=== PATIENT | female | born 1995 | race Caucasian/White ===

== ENCOUNTER 2023-09-02 08:00 | Outpatient (CLI) | payer OTHER ==
[2023-09-02 16:46] LABS: BILIRUBIN,URINE NEGATIVE (NEGATIVE); GLUCOSE, URINE (UA) NEGATIVE (NEGATIVE); KETONES,URINE (UA) NEGATIVE (NEGATIVE); LEUKOCYTE ESTERASE, URINE NEGATIVE (NEGATIVE); NITRITE,URINE NEGATIVE (NEGATIVE); OCCULT BLOOD,URINE NEGATIVE (NEGATIVE); PROTEIN,URINE NEGATIVE (NEGATIVE); UROBILINOGEN,URINE 0.2 (NORMAL) E.U./dL (NORMAL)
[2023-09-02 16:53] LABS: CLARITY,URINE CLOUDY (CLEAR)
[2023-09-02 16:59] LABS: AMORPHOUS SEDIMENT,UR Marked /LPF; BACTERIA,URINE None Seen /HPF (None Seen); RBC,URINE None Seen /HPF (0-5); SQUAMOUS EPITHELIAL CELL,UR RARE Squamous (<= Few); WBC,URINE 0-3 /HPF (0-5)
== END 2023-09-02 23:59 | disposition home or self-care (01) ==
LOC: LAB.WC 08:00
PROVIDERS: ATTEND Nurse Practitioner
DX: Z34.00 Encounter for supervision of normal first pregnancy, unspecified trimester (principal)
CPT/HCPCS: 81001; 87086

== ENCOUNTER 2023-09-08 13:32 | Emergency (ER) | payer OTHER ==
[2023-09-08 15:00] LABS: BILIRUBIN,URINE NEGATIVE (NEGATIVE); GLUCOSE, URINE (UA) NEGATIVE (NEGATIVE); KETONES,URINE (UA) NEGATIVE (NEGATIVE); LEUKOCYTE ESTERASE, URINE NEGATIVE (NEGATIVE); NITRITE,URINE NEGATIVE (NEGATIVE); OCCULT BLOOD,URINE LARGE (NEGATIVE); PROTEIN,URINE NEGATIVE (NEGATIVE); UROBILINOGEN,URINE 0.2 (NORMAL) E.U./dL (NORMAL)
[2023-09-08 15:02] LABS: CLARITY,URINE CLEAR (CLEAR)
[2023-09-08 15:09] LABS: BACTERIA,URINE Rare /HPF (None Seen); RBC,URINE TNTC /HPF (0-5); SQUAMOUS EPITHELIAL CELL,UR RARE Squamous (<= Few); WBC,URINE 0-3 /HPF (0-5)
[2023-09-08 15:43] LABS: HCG UR QUAL POSITIVE
[2023-09-08 16:26] LABS: BASOPHILS % (AUTO) 0.3 %; EOSINOPHILS % (AUTO) 0.1 %; HCT - HEMATOCRIT 39.9 % (37.0-47.0); HGB - HEMOGLOBIN 13.3 g/dL (12.0-16.0); LYMPHOCYTES # (AUTO) 1.4 10^3/uL (1.5-3.5); LYMPHOCYTES % (AUTO) 9.7 %; MEAN CORPUSCULAR HGB CONC 33.3 g/dL (32.0-36.0); MEAN CORPUSCULAR VOLUME 86.9 fL (81.0-99.0); MONOCYTES # (AUTO) 0.5 10^3/uL (0.0-1.0); MONOCYTES % (AUTO) 3.3 %; NEUTROPHILS # (AUTO) 12.5 10^3/uL (1.5-6.6); NEUTROPHILS % (AUTO) 86.3 %; PLT - PLATELET COUNT 317 10^3/uL (130-450); RED BLOOD COUNT 4.59 10^6/uL (4.20-5.40); RED CELL DISTRIBUTION WIDTH 13.1 % (12.0-15.0); WHITE BLOOD COUNT 14.4 x10^3/uL (4.8-10.8)
[2023-09-08 16:59] LABS: ALBUMIN 4.3 g/dL (3.2-5.5); ALBUMIN/GLOBULIN RATIO 1.4 (1.0-2.2); BILIRUBIN,TOTAL 0.2 mg/dL (0.2-1.0); CALCIUM 9.9 mg/dL (8.5-10.3); CREATININE 0.6 mg/dL (0.6-1.3); MAGNESIUM 1.7 mg/dL (1.7-2.3); TOTAL PROTEIN 7.3 g/dL (6.4-8.9)
--- NOTE | 2023-09-08 18:36 | ED Physician Documentation ---
PD HPI FEMALE - Stated complaint Stated Complaint: - Chief complaint Chief Complaint: Abd Pain - Additional information Additional information: 28-year-old female presents emergency department for concerns of vaginal bleeding. Patient is G2, P0 she reports that she is about 7 weeks today she started noticing bright red vaginal bleeding with mild clots around 1 PM since then the abdominal cramping and the bleeding has almost entirely resolved but patient wanted to come into the emergency department for further evaluation for concerns of possible miscarriage. 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 : None HEENT: None Psych: Depression Musculoskeletal: None Derm: None - Past Surgical History Past Surgical History: No - Present Medications Home Medications: Ambulatory Orders Medication Instructions Recorded Confirmed Sertraline [Zoloft] 25 mg PO DAILY 09/08/23 09/08/23 hydrOXYzine HCL [Hydroxyzine HCl] 10 mg PO DAILY 09/08/23 09/08/23 - Allergies Allergies/Adverse Reactions: Allergies Allergy/AdvReac Type Severity Reaction Status Date / Time No Known Drug Allergies Allergy Verified 09/08/23 17:42 - Social History Does the pt smoke?: No Smoking Status: Never smoker Does the pt drink ETOH?: No Does the pt have substance abuse?: No - Immunizations Immunizations are current?: Yes - POLST Patient has POLST: No PD ED PE NORMAL - Vitals Vital signs reviewed: Yes - General General: Alert and oriented X 3, No acute distress, Well developed/nourished - HEENT HEENT: Atraumatic, PERRL - Abdomen Abdomen: Normal bowel sounds, Soft, Other (Mild suprapubic tenderness) - Back Back: No CVA TTP - Derm Derm: Normal color, Warm and dry, No rash - Psych Psych: Normal mood, Normal affect Results - Vitals Vitals: Vital Signs - 24 hr 09/08/23 09/08/23 13:56 18:46 Temperature 36.9 C 36.8 C Heart Rate 82 81 Respiratory 17 18 Rate Blood Pressure 125/62 130/72 O2 Saturation 99 100 Oxygen O2 Source Room air - Labs Labs: Laboratory Tests 09/08/23 09/08/23 09/08/23 14:00 14:00 16:22 WBC RBC Hgb Hct MCV MCH MCHC RDW Plt Count MPV Neut # (Auto) Lymph # (Auto) [place] # (Auto) Eos # (Auto) Baso # (Auto) Absolute Nucleated RBC Nucleated RBC % Sodium Potassium Chloride Carbon Dioxide Anion Gap BUN Creatinine Estimated GFR (MDRD) Glucose Calcium Magnesium Total Bilirubin AST ALT Alkaline Phosphatase Total Protein Albumin Globulin Albumin/Globulin Ratio Lipase Beta HCG, Quant Urine Color YELLOW Urine Clarity CLEAR Urine pH 7.0 Ur Specific [place] 1.025 Urine Protein NEGATIVE Urine Glucose (UA) NEGATIVE Urine Ketones NEGATIVE Urine Occult Blood LARGE H Urine Nitrite NEGATIVE Urine Bilirubin NEGATIVE Urine Urobilinogen 0.2 (NORMAL) Ur Leukocyte Esterase NEGATIVE Urine RBC TNTC H Urine WBC 0-3 Ur Squamous Epith Cells RARE Squamous Urine Bacteria Rare Ur Microscopic Review INDICATED Urine Culture Comments NOT INDICATED Urine HCG, Qual POSITIVE Blood Type O POSITIVE 09/08/23 09/08/23 16:22 16:22 WBC 14.4 H RBC 4.59 Hgb 13.3 Hct 39.9 MCV 86.9 MCH 29.0 MCHC 33.3 RDW 13.1 Plt Count 317 MPV 9.0 Neut # (Auto) 12.5 H Lymph # (Auto) 1.4 L [place] # (Auto) 0.5 Eos # (Auto) 0.0 Baso # (Auto) 0.0 Absolute Nucleated RBC 0.00 Nucleated RBC % 0.0 Sodium 133 L Potassium 4.0 Chloride 104 Carbon Dioxide 21 Anion Gap 8.0 BUN 7 Creatinine 0.6 Estimated GFR (MDRD) 121 Glucose 179 H Calcium 9.9 Magnesium 1.7 Total Bilirubin 0.2 AST 18 ALT 25 Alkaline Phosphatase 38 L Total Protein 7.3 Albumin 4.3 Globulin 3.0 Albumin/Globulin Ratio 1.4 Lipase 18 Beta HCG, Quant 40558.2 Urine Color Urine Clarity Urine pH Ur Specific [place] Urine Protein Urine Glucose (UA) Urine Ketones Urine Occult Blood Urine Nitrite Urine Bilirubin Urine Urobilinogen Ur Leukocyte Esterase Urine RBC Urine WBC Ur Squamous Epith Cells Urine Bacteria Ur Microscopic Review Urine Culture Comments Urine HCG, Qual Blood Type - Rads (name of study) First trimester OB ultrasound Relevant Findings:: Final report received, EMP independent interpretation of test, Other (Single intrauterine gestation with estimated age of 6 weeks. Subchorionic hematoma 1.4 cm, positive heart tones.) PD Medical Decision Making - ED course ED course: 28-year-old female presents emergency department for concerns of vaginal bleeding and cramping. Differentials include but not limited to urinary tract infection, miscarriage, menses. Patient did test positive quantitative hCG was 23,403, mild leukocytosis, WBC 14.4 with slightly elevated neutrophils at 12.5. Glucose elevated at 179 no other significant electrolyte abnormalities. Urinalysis was complete negative for any leukocytes or nitrites making me less suspicious or concerned about possible urinary tract infection. An OB first trimester ultrasound was complete and it did reveal a single intrauterine gestation with estimated age of 6 weeks 5 days as well as a 1.4 cm subchorionic hematoma. Patient was told that given that these ultrasound results are reassuring she is possibly experiencing threatened miscarriage she is told to not insert anything vaginally until she is able to follow-up with AUTO BODY REPAIRER outpatient for further evaluation and to avoid any strenuous exercise. She was given strict ER return precautions she is safe for discharge at this time not concerned about any sort of ectopic or other emergencies. Return precautions given Departure - Departure Disposition: 01 Home, Self Care Clinical Impression: Threatened Instructions: ED Miscarriage Poss Comments: Thank you for trusting us with your care, we have evaluated you for Your vaginal bleeding and abdominal cramping. We have completed an ultrasound and it appears that you are is intra uterus and measuring at about 6 weeks there is a small bleed but we do not believe there is any further emergent workup indicated at this time. Please follow-up with [facility] REPAIR[facility] as needed avoid inserting anything vaginally until you are able to follow-up with [facility] BODY REPAIRER and no strenuous activities like working out or riding bike until you are able to follow-up with [facility] REPAIR[facility]. Please come back to the emergency department for having any severe worsening vaginal bleeding worsening abdominal pain fevers chills or any other emergent concerning symptoms. Forms: PCP List Discharge Date/Time: 09/08/23 18:45
[2023-09-08 18:47] VITALS: BP 130/72; O2SAT 100
--- NOTE | 2023-09-08 20:10 | Ultrasound Report ---
PROCEDURE: OB 1st Trimester w/TV INDICATIONS: 7 weeks , vaginal bleeding OUTSIDE/PRIOR DATING DATA: Last menstrual period (LMP): 07/18/2023. LMP-based estimated date of delivery (KIM): 04/23/2024. First dating scan (date and location): 09/08/2023. Estimated date of delivery (KIM) from first dating scan: 04/28/2024. TECHNIQUE: Real-time scanning was performed of the fetus and maternal pelvic organs, with image documentation. Endovaginal scanning was also performed to better visualize the fetus and maternal ovaries. COMPARISON: None. FINDINGS: Intrauterine gestational sac present. Embryo: Mean gestational sac diameter of 1.76 cm corresponding to estimated age of 6 weeks, 5 days. [place]-rump length measures 0.78 cm corresponding to estimated age of 6 weeks, 5 days. Heart rate: 137 bpm. Other: No perigestational fluid collection. Measurement variability in dating: +/- 4 weeks by LMP, +/- 7 days by mean sac diameter (use before 6 weeks gestation if crown-rump length not able to be measured), +/- 5 days by crown-rump length (6-12 weeks gestation). Maternal organs: Ovaries appear within normal limits. Left corpus luteum cyst visualized. Subchorion ic bleed measuring 0.9 x 0.9 x 1.4 cm. IMPRESSION: Single intrauterine gestation with estimated age of 6 weeks, 5 days based on crown-rump length. Subchorionic hematoma measuring up to 1.4 cm. Reviewed by: Margoth Torrez MD, PhD on 09/08/2023 8:09 PM PDT Approved by: Margoth Torrez MD, PhD on 09/08/2023 8:09 PM PDT Station ID: [id number]
== END 2023-09-08 18:45 | disposition home or self-care (01) ==
LOC: ED 13:32
DX: O20.0 Threatened abortion (principal); Z3A.01 Less than 8 weeks gestation of pregnancy
CPT/HCPCS: 36415; 80053; 81001; 81003; 81025; 83690; 83735; 84702; 85025; 86900; 86901; 87086; 99284

== ENCOUNTER 2023-09-14 06:39 | Emergency (ER) | payer OTHER ==
--- NOTE | 2023-09-14 07:32 | ED Physician Documentation ---
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 Patient is 28-year-old female -0-1-0 in early . The patient was seen in the emergency department 6 days ago with vaginal bleeding and threatened miscarriage. At that time had ultrasound which showed IUP with gestational age of 6 weeks 5 days and a 1.4 cm subchorionic hematoma. Patient was doing better since then. Last night at 0030 she developed some mild pelvic cramping and had some bleeding. Heavier than spotting but about like a menstrual period. Bleeding now better. No further cramping no lightheadedness. She is Rh+. Review of Systems Constitutional: denies: Fever, Chills GI: denies: Abdominal Pain : denies: Dysuria, Frequency PD PAST MEDICAL HISTORY - Past Medical History Past Medical History: No Cardiovascular: None Respiratory: None Neuro: None Endocrine/Autoimmune: None GI: None TRANSITION TEACHER: None : None HEENT: None Psych: Depression Musculoskeletal: None Derm: None - Past Surgical History Past Surgical History: No - Present Medications Home Medications: Ambulatory Orders Medication Instructions Recorded Confirmed Sertraline [Zoloft] 25 mg PO DAILY 09/08/23 09/14/23 hydrOXYzine HCL [Hydroxyzine HCl] 10 mg PO DAILY 09/08/23 09/14/23 Pnv No.95/Ferrous Fum/Folic AC 1 each PO DAILY 09/14/23 09/14/23 [ Tablet] Pyridoxine HCl (Vitamin B6) 10 mg PO PRN PRN 09/14/23 09/14/23 [Vitamin B-6] - Allergies Allergies/Adverse Reactions: Allergies Allergy/AdvReac Type Severity Reaction Status Date / Time No Known Drug Allergies Allergy Verified 09/14/23 06:51 - Social History Does the pt smoke?: No Smoking Status: Never smoker Does the pt drink ETOH?: No Does the pt have substance abuse?: No - Immunizations Immunizations are current?: Yes - POLST Patient has POLST: No PD ED PE NORMAL - General General: Alert and oriented X 3 - HEENT HEENT: Atraumatic - Neck Neck: Supple, no meningeal sign - Cardiac Cardiac: RRR, No murmur - Respiratory Respiratory: No respiratory distress - Abdomen Abdomen: Normal bowel sounds, Soft - Female Female : Mash Grinder present, Other (Scant dark/brownish blood material in vault. No clots no bright red blood. Os is closed. Bimanual exam without any localizing signs.) - Extremities Extremities: No deformity Results - Vitals Vitals: Vital Signs - 24 hr 09/14/23 06:51 Temperature 37.1 C Heart Rate 86 Respiratory 16 Rate Blood Pressure 144/92 H O2 Saturation 100 Oxygen O2 Source Room air - Labs Labs: Laboratory Tests 09/14/23 09/14/23 08:01 08:01 WBC 11.9 H RBC 4.69 Hgb 13.4 Hct 40.3 MCV 85.9 MCH 28.6 MCHC 33.3 RDW 12.9 Plt Count 317 MPV 8.9 Neut # (Auto) 8.9 H Lymph # (Auto) 2.2 [place] # (Auto) 0.6 Eos # (Auto) 0.1 Baso # (Auto) 0.0 Absolute Nucleated RBC 0.00 Nucleated RBC % 0.0 Beta HCG, Quant 59137.7 PD Medical Decision Making - ED course Complexity details: reviewed old records, reviewed results, re-evaluated patient, considered differential (Threatened AB versus inevitable AB. She has known IUP diagnosed on last visit. Given presence of subchorionic hematoma noted on last ultrasound bleeding is not completely unexpected.) ED course: Patient with vaginal bleeding in setting of early and known IUP. She is 7 weeks 4 days by last ultrasound dates. She is Rh+. [place] [address].7. Plan to discharge home, recheck quant beta in 4872 hours with her OB doctor here at [facility]. Hemodynamically stable, well- appearing. Would not repeat ultrasound at this time.Discussed conservative measures including pelvic rest and importance of rechecking beta in 48 to 72 hours to determine trend. Departure - Departure Disposition: Home, Self Care Clinical Impression: Threatened Condition: Good Instructions: ED Miscarriage Poss Follow-Up: Radames Montague MD [Provider Admit Priv/Credential] - Comments: . As I mentioned today, is important to recheck your beta hCG ( hormone test) in 2 to 3 days. Your OB doctor can help with this. Your beta hCG today was 57947. Call the OB clinic to arrange for follow up check and repeat blood test. Return to emergency department worsening bleeding, soaking through more than a pad an hour or any other concerns Forms: PCP List
[2023-09-14 08:06] LABS: BASOPHILS % (AUTO) 0.3 %; EOSINOPHILS # (AUTO) 0.1 10^3/uL (0.0-0.7); EOSINOPHILS % (AUTO) 0.4 %; HCT - HEMATOCRIT 40.3 % (37.0-47.0); HGB - HEMOGLOBIN 13.4 g/dL (12.0-16.0); LYMPHOCYTES # (AUTO) 2.2 10^3/uL (1.5-3.5); LYMPHOCYTES % (AUTO) 18.2 %; MEAN CORPUSCULAR HEMOGLOBIN 28.6 pg (27.0-31.0); MEAN CORPUSCULAR HGB CONC 33.3 g/dL (32.0-36.0); MEAN CORPUSCULAR VOLUME 85.9 fL (81.0-99.0); MEAN PLATELET VOLUME 8.9 fL (7.9-10.8); MONOCYTES # (AUTO) 0.6 10^3/uL (0.0-1.0); MONOCYTES % (AUTO) 5.2 %; NEUTROPHILS # (AUTO) 8.9 10^3/uL (1.5-6.6); NEUTROPHILS % (AUTO) 75.5 %; PLT - PLATELET COUNT 317 10^3/uL (130-450); RED BLOOD COUNT 4.69 10^6/uL (4.20-5.40); RED CELL DISTRIBUTION WIDTH 12.9 % (12.0-15.0); WHITE BLOOD COUNT 11.9 x10^3/uL (4.8-10.8)
[2023-09-14 09:20] VITALS: BP 136/56; O2SAT 97
== END 2023-09-14 09:17 | disposition home or self-care (01) ==
LOC: ED 06:39
DX: O20.0 Threatened abortion (principal); Z3A.01 Less than 8 weeks gestation of pregnancy
CPT/HCPCS: 36415; 84702; 85025; 99283

== ENCOUNTER 2023-09-15 15:05 | Outpatient (CLI) | payer OTHER ==
--- NOTE | 2023-09-15 16:37 | Ultrasound Report ---
PROCEDURE: OB 1st Trimester w/TV INDICATIONS: POSITIVE TEST OUTSIDE/PRIOR DATING DATA: Last menstrual period (LMP): 07/18/2023. LMP-based estimated date of delivery (KIM): 04/23/2024. First dating scan (date and location): 09/08/2023. Estimated date of delivery (KIM) from first dating scan: 04/28/2024. TECHNIQUE: Real-time scanning was performed of the fetus and maternal pelvic organs, with image documentation. Endovaginal scanning was also performed to better visualize the fetus and maternal ovaries. COMPARISON: None. FINDINGS: Intrauterine gestational sac present. Embryo: 1.56 cm, 8 weeks 0 days Heart rate: 166 bpm. Other: Small perigestational fluid collection, measuring 1.4 x 1.0 x 2.0 cm.. Measurement variability in dating: +/- 4 weeks by LMP, +/- 7 days by mean sac diameter (use before 6 weeks gestation if crown-rump length not able to be measured), +/- 5 days by crown-rump length (6-12 weeks gestation). Maternal organs: Ovaries appear within normal limits. Multiple small presumed left corpus luteal cys ts. IMPRESSION: Living early first trimester intrauterine with crown-rump length and heartbeat. Small subch orionic hemorrhage. Reviewed by: Kevin De La Rosa MD on 09/15/2023 4:36 PM PDT Approved by: Kevin De La Rosa MD on 09/15/2023 4:36 PM PDT Station ID: [id number]
== END 2023-09-15 15:06 | disposition home or self-care (01) ==
LOC: DI 15:05
PROVIDERS: ATTEND Nurse Practitioner
DX: O26.851 Spotting complicating pregnancy, first trimester (principal); Z3A.08 8 weeks gestation of pregnancy
CPT/HCPCS: 36415; 84702

== ENCOUNTER 2023-09-18 12:11 | Outpatient (CLI) | payer OTHER | END 2023-09-18 12:12 | disposition home or self-care (01) | LOC: LAB 12:11 | PROVIDERS: ATTEND Nurse Practitioner | DX: O26.851 Spotting complicating pregnancy, first trimester (principal) | CPT/HCPCS: 36415; 84702 ==

== ENCOUNTER 2023-10-15 11:55 | Outpatient (CLI) | payer OTHER ==
[2023-10-15 12:16] LABS: BASOPHILS % (AUTO) 0.2 %; EOSINOPHILS # (AUTO) 0.1 10^3/uL (0.0-0.7); EOSINOPHILS % (AUTO) 0.4 %; HCT - HEMATOCRIT 38.1 % (37.0-47.0); HGB - HEMOGLOBIN 12.9 g/dL (12.0-16.0); LYMPHOCYTES # (AUTO) 1.9 10^3/uL (1.5-3.5); LYMPHOCYTES % (AUTO) 15.1 %; MEAN CORPUSCULAR HEMOGLOBIN 28.7 pg (27.0-31.0); MEAN CORPUSCULAR HGB CONC 33.9 g/dL (32.0-36.0); MEAN CORPUSCULAR VOLUME 84.9 fL (81.0-99.0); MEAN PLATELET VOLUME 8.9 fL (7.9-10.8); MONOCYTES # (AUTO) 0.7 10^3/uL (0.0-1.0); MONOCYTES % (AUTO) 5.8 %; PLT - PLATELET COUNT 333 10^3/uL (130-450); RED BLOOD COUNT 4.49 10^6/uL (4.20-5.40); RED CELL DISTRIBUTION WIDTH 12.5 % (12.0-15.0); WHITE BLOOD COUNT 12.8 x10^3/uL (4.8-10.8)
[2023-10-15 12:33] LABS: ALBUMIN 4.2 g/dL (3.2-5.5); ALBUMIN/GLOBULIN RATIO 1.3 (1.0-2.2); BILIRUBIN,TOTAL 0.3 mg/dL (0.2-1.0); CALCIUM 9.9 mg/dL (8.5-10.3); CREATININE 0.4 mg/dL (0.6-1.3); POTASSIUM 3.6 mmol/L (3.5-4.5); TOTAL PROTEIN 7.4 g/dL (6.4-8.9)
[2023-10-15 12:36] LABS: ESTIMATED AVERAGE GLUCOSE 117 mg/dL (70-100); HEMOGLOBIN A1c% 5.7 % (4.27-6.07)
[2023-10-15 12:46] LABS: THYROID STIMULATING HORMONE 0.42 uIU/mL (0.34-5.60)
[2023-10-16 06:10] LABS: RPR Non Reactive (Non Reactive)
[2023-10-16 07:10] LABS: HBsAG SCREEN Negative (Negative)
[2023-10-16 09:11] LABS: HIV SCREEN 4TH GENERATION Non Reactive (Non Reactive)
[2023-10-16 12:10] LABS: VARICELLA-ZOSTER AB IGG 368 index (Immune >165)
[2023-10-17 01:08] LABS: HCV AB Non Reactive (Non Reactive)
== END 2023-10-15 11:56 | disposition home or self-care (01) ==
LOC: LAB 11:55
PROVIDERS: ATTEND Nurse Practitioner
DX: Z36.89 Encounter for other specified antenatal screening (principal); E28.2 Polycystic ovarian syndrome; O99.280 Endocrine, nutritional and metabolic diseases complicating pregnancy, unspecified trimester
CPT/HCPCS: 36415; 80053; 83036; 84443; 85025; 86592; 86762; 86787; 86803; 86850; 86900; 86901; 87340; 87389

== ENCOUNTER 2023-10-16 08:07 | Emergency (ER) | payer OTHER ==
[2023-10-16 08:35] LABS: BASOPHILS % (AUTO) 0.2 %; EOSINOPHILS % (AUTO) 0.3 %; HCT - HEMATOCRIT 37.6 % (37.0-47.0); HGB - HEMOGLOBIN 12.9 g/dL (12.0-16.0); LYMPHOCYTES # (AUTO) 1.7 10^3/uL (1.5-3.5); LYMPHOCYTES % (AUTO) 13.1 %; MEAN CORPUSCULAR HGB CONC 34.3 g/dL (32.0-36.0); MEAN CORPUSCULAR VOLUME 84.5 fL (81.0-99.0); MEAN PLATELET VOLUME 8.8 fL (7.9-10.8); MONOCYTES # (AUTO) 0.6 10^3/uL (0.0-1.0); MONOCYTES % (AUTO) 4.7 %; NEUTROPHILS # (AUTO) 10.4 10^3/uL (1.5-6.6); NEUTROPHILS % (AUTO) 81.1 %; PLT - PLATELET COUNT 318 10^3/uL (130-450); RED BLOOD COUNT 4.45 10^6/uL (4.20-5.40); RED CELL DISTRIBUTION WIDTH 12.6 % (12.0-15.0); WHITE BLOOD COUNT 12.8 x10^3/uL (4.8-10.8)
[2023-10-16 08:55] LABS: ALBUMIN 4.2 g/dL (3.2-5.5); ALBUMIN/GLOBULIN RATIO 1.3 (1.0-2.2); BILIRUBIN,TOTAL 0.3 mg/dL (0.2-1.0); CALCIUM 9.8 mg/dL (8.5-10.3); CREATININE 0.4 mg/dL (0.6-1.3); POTASSIUM 3.5 mmol/L (3.5-4.5); TOTAL PROTEIN 7.4 g/dL (6.4-8.9)
[2023-10-16] MEDS: SODIUM CHLORIDE 0.9% 1,000 ML IV STA (08:55)
[2023-10-16] MEDS: ONDANSETRON 4 MG/2 ML VIAL IVP STA (08:57)
--- NOTE | 2023-10-16 09:02 | ED Physician Documentation ---
PD HPI NVD - Stated complaint Stated Complaint: N/V - Chief complaint Chief Complaint: Abd Pain - History obtained from History obtained from: Patient - Additonal information Additional information: Patient is a 28-year-old female approximately 12 weeks , G2, P0 (h/o 1 elective ) Presenting with ongoing nausea and vomiting. Patient states that she has been battling morning sickness through this and has tried Zofran and Unisom without any improvement. She does have Phenergan suppositories which help a little bit but primarily they just make her sleepy. She is only tried the suppositories 3 times. This morning she was having several episodes of nausea and vomiting and then ended up having a nosebleed and saw few specks of blood in her emesis and called her PCP at the [facility] who recommended she come to the emergency department. She is following with Annie at the [facility] clinic for her . Denies vaginal bleeding or discharge. Denies dysuria.Does not take any blood thinners. Review of Systems Constitutional: denies: Fever Cardiac: denies: Chest pain / pressure Respiratory: denies: Dyspnea GI: reports: Nausea, Vomiting. 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 : None HEENT: None Psych: Depression Musculoskeletal: None Derm: None - Past Surgical History Past Surgical History: No - Present Medications Home Medications: Ambulatory Orders Medication Instructions Recorded Confirmed Sertraline [Zoloft] 25 mg PO DAILY 09/08/23 10/16/23 hydrOXYzine HCL [Hydroxyzine HCl] 10 mg PO DAILY 09/08/23 10/16/23 Pnv No.95/Ferrous Fum/Folic AC 1 each PO DAILY 09/14/23 10/16/23 [ Tablet] Pyridoxine HCl (Vitamin B6) 10 mg PO PRN PRN 09/14/23 10/16/23 [Vitamin B-6] PROMETHAZINE SUPP Prepack 2 1 supp NM BID PRN 10/16/23 10/16/23 [PHENADOZ SUPP Prepack 2] - Allergies Allergies/Adverse Reactions: Allergies Allergy/AdvReac Type Severity Reaction Status Date / Time No Known Drug Allergies Allergy Verified 10/16/23 08:14 - Social History Does the pt smoke?: No Smoking Status: Never smoker Does the pt drink ETOH?: No Does the pt have substance abuse?: No - Immunizations Immunizations are current?: Yes - POLST Patient has POLST: No PD ED PE NORMAL - General General: Alert and oriented X 3, No acute distress, Well developed/nourished - HEENT HEENT: Atraumatic - Neck Neck: Supple, no meningeal sign - Cardiac Cardiac: RRR, Strong equal pulses - Respiratory Respiratory: No respiratory distress, Clear bilaterally - Abdomen Abdomen: Normal bowel sounds, Soft, Non tender, Non distended - Derm Derm: Warm and dry - Neuro Neuro: Normal speech Results - Vitals Vitals: Vital Signs - 24 hr 10/16/23 10/16/23 08:10 10:23 Temperature 36.5 C Heart Rate 93 88 Respiratory 18 15 Rate Blood Pressure 137/68 H 130/68 O2 Saturation 100 99 Oxygen O2 Source Room air - Labs Labs: Laboratory Tests 10/16/23 10/16/23 10/16/23 08:27 08:27 09:15 WBC 12.8 H RBC 4.45 Hgb 12.9 Hct 37.6 MCV 84.5 MCH 29.0 MCHC 34.3 RDW 12.6 Plt Count 318 MPV 8.8 Neut # (Auto) 10.4 H Lymph # (Auto) 1.7 [place] # (Auto) 0.6 Eos # (Auto) 0.0 Baso # (Auto) 0.0 Absolute Nucleated RBC 0.00 Nucleated RBC % 0.0 Sodium 133 L Potassium 3.5 Chloride 103 Carbon Dioxide 22 Anion Gap 8.0 BUN 4 L Creatinine 0.4 L Estimated GFR (MDRD) 193 Glucose 123 H Calcium 9.8 Total Bilirubin 0.3 AST 17 ALT 19 Alkaline Phosphatase 32 L Total Protein 7.4 Albumin 4.2 Globulin 3.2 Albumin/Globulin Ratio 1.3 Lipase 13 Urine Color DARK YELLOW Urine Clarity CLEAR Urine pH 7.5 Ur Specific [place] 1.025 Urine Protein 30 H Urine Glucose (UA) NEGATIVE Urine Ketones NEGATIVE Urine Occult Blood NEGATIVE Urine Nitrite NEGATIVE Urine Bilirubin NEGATIVE Urine Urobilinogen 0.2 (NORMAL) Ur Leukocyte Esterase NEGATIVE Urine RBC 0-5 Urine WBC 0-3 Ur Squamous Epith Cells MANY Squamous H Urine Bacteria Moderate H Ur Microscopic Review INDICATED Urine Culture Comments NOT INDICATED PD Medical Decision Making - ED course Complexity details: reviewed results, re-evaluated patient, d/w patient ED course: Patient is a 28-year-old female G2, P0 who is approximately 12 weeks presenting for evaluation of ongoing nausea and vomiting in the setting of . Vital signs are stable. No abdominal symptoms And abdominal exam is benign. heart tones were obtained by RN at 160 bpm.CBC and chemistries were reviewed. Urine analysis is not overly suggestive of infection. She is feeling better here with IV fluids and Zofran and feeling hungry and would like to be discharged. She has medications at home and will have continued follow-up with her OB. Patient advised on concerning symptoms to return for. Departure - Departure Disposition: Home, Self Care Clinical Impression: Nausea/vomiting in Condition: Stable Instructions: ED Nausea Vomiting Follow-Up: Annie Wheeler ARNP [Provider Admit Priv/Credential] - Comments: Please continue to have close follow-up with the women's care clinic regarding the nausea you are experiencing through your . Continue to use your medications at home as needed to try to stay hydrated. Return to the ER if you develop any worsening symptoms. Forms: PCP List Discharge Date/Time: 10/16/23 10:24
[2023-10-16 09:22] LABS: BILIRUBIN,URINE NEGATIVE (NEGATIVE); GLUCOSE, URINE (UA) NEGATIVE (NEGATIVE); KETONES,URINE (UA) NEGATIVE (NEGATIVE); LEUKOCYTE ESTERASE, URINE NEGATIVE (NEGATIVE); NITRITE,URINE NEGATIVE (NEGATIVE); OCCULT BLOOD,URINE NEGATIVE (NEGATIVE); PH,URINE 7.5 PH (5.0-7.5); PROTEIN,URINE 30 mg/dL (NEGATIVE); UROBILINOGEN,URINE 0.2 (NORMAL) E.U./dL (NORMAL)
[2023-10-16 09:25] LABS: CLARITY,URINE CLEAR (CLEAR)
[2023-10-16 09:47] LABS: BACTERIA,URINE Moderate /HPF (None Seen); RBC,URINE 0-5 /HPF (0-5); SQUAMOUS EPITHELIAL CELL,UR MANY Squamous (<= Few); WBC,URINE 0-3 /HPF (0-5)
[2023-10-16 10:28] VITALS: BP 130/68; O2SAT 99
== END 2023-10-16 10:24 | disposition home or self-care (01) ==
LOC: ED 08:07
DX: O21.0 Mild hyperemesis gravidarum (principal); Z3A.12 12 weeks gestation of pregnancy
CPT/HCPCS: 36415; 80053; 81001; 81003; 83690; 85025; 87086; 96374; 99284

== ENCOUNTER 2023-11-05 13:03 | Outpatient (CLI) | payer OTHER | END 2023-11-05 13:04 | disposition home or self-care (01) | LOC: LAB 13:03 | PROVIDERS: ATTEND Obstetrics & Gynecology | DX: Z34.00 Encounter for supervision of normal first pregnancy, unspecified trimester (principal) | CPT/HCPCS: 36415; 82105; 82950 ==

== ENCOUNTER 2023-12-15 15:08 | Outpatient (CLI) | payer OTHER ==
--- NOTE | 2023-12-15 17:50 | Ultrasound Report ---
PROCEDURE: OB Anatomy Scan INDICATIONS: SUPERVISION OF OUTSIDE/PRIOR DATING DATA: Last menstrual period (LMP): 07/18/2023. LMP-based estimated date of delivery (KIM): 04/23/2024. First dating scan (date and location): 09/08/2023. Estimated date of delivery (KIM) from first dating scan: 04/28/2024. The below data below was generated using the working KIM of 04/28/2024 TECHNIQUE: Real-time scanning was performed of the fetus, with image documentation and biometric measurements. Endovaginal scanning: Not performed. COMPARISON: 09/15/2023 FINDINGS: General: A single living intrauterine gestation is present. Presentation: Vertex Placenta: Placental position is posterior, without previa. Amniotic fluid index: 10.0 cm, within normal limits for gestational age. heart rate: 150 beats per minute. Maternal cervical canal: Closed and measures 4.2 cm long; normal length is 2.5 cm or more. biometrics: Biparietal diameter: 5.1 cm, 21 weeks, 4 days, 80%. Head circumference: 18.9 cm, 21 weeks, 1 day, 63%. Abdominal circumference: 15.9 cm, 21 weeks, there date, 53%. Femur length: 3.4 cm, 20 weeks, 4 days, 37%. Estimated gestational age from initial scan: 20 weeks, 5 days Composite gestational age from present scan: 21 weeks, 1 day Estimated weight and percentile: 384 g, 54% Measurement variability in biometric dating: +/- 10 days from 12-20 weeks gestation, +/- 2 weeks from 20-30 weeks gestation, +/- 3 weeks at 30 weeks gestation or later. Anatomic survey: Neuro: Ventricles are normal at less than 10 mm. Cisterna magna is normal at 3-11 mm. Cerebellum i s normal in size and morphology. Nuchal skin fold: Normal at less than 6 mm between 14 and 20 weeks gestational age. Face: Nose and lips, facial profile are not well seen. Spine: No evidence for spina bifida. Heart: 4-chambered heart and outflow tracts are not well seen due to position. Diaphragm: Diaphragm is intact. Stomach: Left-sided stomach is present. Kidneys: No hydronephrosis. Normal is less than 5 mm in 2nd trimester, less than 7 mm in 3rd trimester. Cord: 3 vessel cord. Placental cord insertion is not well seen. Bladder: Normal in size. Extremities: All 4 extremities are visualized. IMPRESSION: 1. Single live intrauterine gestation with fetus in vertex presentation. heart rate is 150 beat s. Normal NICK at 10.0 cm. Normal growth. Estimated weight measures 54%. 2. facial profile, cardiac structures and placental cord insertion are not well seen posi tion. Rest of the anatomic survey is normal. Reviewed by: Héctor Garland MD on 12/15/2023 5:48 PM PDT Approved by: Héctor Garland MD on 12/15/2023 5:48 PM PDT Station ID: [id number]
== END 2023-12-15 15:09 | disposition home or self-care (01) ==
LOC: DI 15:08
PROVIDERS: ATTEND Obstetrics & Gynecology
DX: O99.212 Obesity complicating pregnancy, second trimester (principal); Z3A.21 21 weeks gestation of pregnancy

== ENCOUNTER 2023-12-31 19:47 | Outpatient (CLI) | payer OTHER ==
--- NOTE | 2024-01-01 13:34 | Ultrasound Report ---
PROCEDURE: OB Follow up INDICATIONS: OBESITY OUTSIDE/PRIOR DATING DATA: Last menstrual period (LMP): 07/18/2023. LMP-based estimated date of delivery (KIM): 04/23/2024. First dating scan (date and location): 09/08/2023. Estimated date of delivery (KIM) from first dating scan: 04/28/2024. The below data below was generated using the ultrasound KIM of 04/28/2024 TECHNIQUE: Real-time scanning was performed of the fetus, with image documentation and biometric measurements. Endovaginal scanning: Not performed. COMPARISON: 09/15/2023 FINDINGS: General: A single living intrauterine gestation is present. Presentation: Vertex Placenta: Placental position is posterior, without previa. Amniotic fluid index: 10 cm, within normal limits for gestational age. heart rate: 150 beats per minute. Maternal cervical canal: 4.2 cm long; normal length is 2.5 cm or more. biometrics: Biparietal diameter: 5.1 cm, 21 weeks 4 days, 80 percentile Head circumference: 18.9 cm, 21 weeks 1 day, 63 percentile Abdominal circumference: 15.9 cm, 21 weeks 0 days, 53 percentile Femur length: 3.4 cm, 20 weeks 4 days, 37 percentile Estimated gestational age from initial scan: 23 weeks 0 days Composite gestational age from present scan: 21 weeks 1 day Estimated weight and percentile: 384 g, 54th percentile Measurement variability in biometric dating: +/- 10 days from 12-20 weeks gestation, +/- 2 weeks from 20-30 weeks gestation, +/- 3 weeks at 30 weeks gestation or more. Anatomic survey: Neuro: Ventricles are normal at less than 10 mm. Cisterna magna is normal at 3-11 mm. Cerebellum i s normal in size and morphology. Nuchal skin fold: Normal at less than 6 mm between 14 and 20 weeks gestational age. Face: Not well seen. Spine: No evidence for spina bifida. Heart: Not well seen. Diaphragm: Diaphragm is intact. Stomach: Left-sided stomach is present. Kidneys: No hydronephrosis. Normal is less than 5 mm in 2nd trimester, less than 7 mm in 3rd trimester. Cord: 3 vessel cord. Placenta insertion not well seen. Bladder: Normal in size. Extremities: All 4 extremities are visualized. IMPRESSION: Single living intrauterine at 23 weeks 0 days, KIM of 04/28/2024. Estimated weight of 384 g, 54th percentile. Facial profile, heart, outflow tracts, and placental cord insertion not well visualized due to position. Consider short-term follow-up. Reviewed by: Jorge Catherine MD on 01/01/2024 12:32 PM ISA Approved by: Jorge Catherine MD on 01/01/2024 12:32 PM AKYAMILETH Station ID: [id number]
== END 2023-12-31 19:48 | disposition home or self-care (01) ==
LOC: DI 19:47
PROVIDERS: ATTEND Obstetrics & Gynecology
DX: O99.212 Obesity complicating pregnancy, second trimester (principal); Z3A.23 23 weeks gestation of pregnancy

== ENCOUNTER 2024-01-07 10:46 | Outpatient (CLI) | payer OTHER ==
[2024-01-07 11:37] LABS: BILIRUBIN,URINE NEGATIVE (NEGATIVE); GLUCOSE, URINE (UA) 500 mg/dL (NEGATIVE); KETONES,URINE (UA) 15 mg/dL (NEGATIVE); LEUKOCYTE ESTERASE, URINE NEGATIVE (NEGATIVE); NITRITE,URINE NEGATIVE (NEGATIVE); OCCULT BLOOD,URINE TRACE-INTA (NEGATIVE); PROTEIN,URINE NEGATIVE (NEGATIVE); UROBILINOGEN,URINE 0.2 (NORMAL) E.U./dL (NORMAL)
[2024-01-07 11:39] VITALS: BP 131/64; O2SAT 97
--- NOTE | 2024-01-07 11:39 | PROVIDER PROGRESS NOTE ---
- HPI Chief Complaint: Other (N/V, pelvic pain) - Procedures Findings: NST 4862-3406 AM FHTs: 150s bpm baseline, + accel, few small variable decelerations vs artifact, mod variability [place]: none Reactive, appropriate for gestational age. - Plan Plan: Radha is a 28 yo at 24w5d who has been referred to triage today by her PCP. Radha reports that she was not feeling well enough this morning to go to work, and was seen by her primary care for work note and he encouraged her to go to ER for N/V. Radha reports that she didn't sleep well last night because of pelvic pain and pain in her knees. Pelvic pain has been going for for last several weeks, feels like her pubic bone is pulling apart. Pain was worse last night and she had a hard time getting comfortable to go to sleep. She has not tried support band for pelvic pain, amenable to pelvic floor PT. Reports sciatica as well. She has had nausea/vomiting throughout , reports that it had improved for sometime but has increased over the last few days. She has rx for Zofran bu t has not tried taking. She had episode of N/V last around 9AM this morning after eating breakfast but has since been able to keep down water. Would like refill of her zofran. Denies vaginal bleeding, cramping/contractions, F/C, dysuria, abnormal discharge. Denies diarrhea, occasional constipation but having daily BMs. Plan: 28 yo at 24w5d presenting with: - Pelvic girdle pain - N/V in - A2DM We discussed use of tylenol, warm bath, and encouraged to try pelvic support band. Also amenable to referral to pelvic floor PT and referral was placed (in [place]). We did check UA, which is pending, low suspicion for UTI, will contact if treatment needed. Zofran refill provided. She did not bring BG log to triage today, had OB appointment scheduled this afternoon. Will change to virtual visit for review of BGs. She is comfortable with discharge home. Return precautions reviewed. Brianna Ornelas MD
[2024-01-07 11:45] LABS: CLARITY,URINE CLEAR (CLEAR)
[2024-01-07 11:58] LABS: BACTERIA,URINE Few /HPF (None Seen); RBC,URINE 0-5 /HPF (0-5); SQUAMOUS EPITHELIAL CELL,UR FEW Squamous (<= Few); WBC,URINE 0-3 /HPF (0-5)
== END 2024-01-07 11:50 | disposition home or self-care (01) ==
LOC: FBP 10:46 → WFO 10:46
PROVIDERS: ATTEND Obstetrics & Gynecology
DX: O99.891 Other specified diseases and conditions complicating pregnancy (principal); R10.2 Pelvic and perineal pain; O21.9 Vomiting of pregnancy, unspecified; Z3A.24 24 weeks gestation of pregnancy; O24.414 Gestational diabetes mellitus in pregnancy, insulin controlled; M25.561 Pain in right knee; M25.562 Pain in left knee
CPT/HCPCS: 59025; 81001; 87086; 99213; 99215

== ENCOUNTER 2024-01-13 16:58 | Outpatient (CLI) | payer OTHER ==
--- NOTE | 2024-01-14 20:53 | Ultrasound Report ---
PROCEDURE: OB Follow up INDICATIONS: OBESITY OUTSIDE/PRIOR DATING DATA: Last menstrual period (LMP): 07/18/2023. LMP-based estimated date of delivery (KIM): 04/23/2024. First dating scan (date and location): 09/08/2023. Estimated date of delivery (KIM) from first dating scan: 04/28/2024. The below data below was generated using the working KIM of 04/28/2024 TECHNIQUE: Ultrasound of the gravid uterus was performed and recorded. COMPARISON: None. FINDINGS: General: A single live intrauterine gestation is present. Presentation: Vertex Placenta: Placental position is posterior without previa. Amniotic fluid index: 15.4 cm, 36.2% for gestational age. heart rate: 143 beats per minute. Maternal cervical canal: 3.5 cm long; normal length is 2.5 cm or more. Estimated gestational age by working dates: 24 week 6 day Other: Not applicable. IMPRESSION: Single live intrauterine consistent with 24 week 6 day gestation by current ultrasound Nuchal cord. Vertebral heart, ventricular outflow tracts, facial profile, nose, lips all within normal limits. Nor mal placental cord insertion. Reviewed by: Cory Rosario MD on 01/14/2024 7:52 PM ISA Approved by: Cory Rosario MD on 01/14/2024 7:52 PM ISA Station ID: [id number]
== END 2024-01-13 16:59 | disposition home or self-care (01) ==
LOC: DI 16:58
PROVIDERS: ATTEND Obstetrics & Gynecology
DX: O99.212 Obesity complicating pregnancy, second trimester (principal); Z3A.24 24 weeks gestation of pregnancy

== ENCOUNTER 2024-02-03 13:54 | Outpatient (CLI) | payer OTHER ==
[2024-02-03 14:07] LABS: HCT - HEMATOCRIT 35.6 % (37.0-47.0); MEAN CORPUSCULAR HEMOGLOBIN 27.8 pg (27.0-31.0); MEAN CORPUSCULAR HGB CONC 33.7 g/dL (32.0-36.0); MEAN CORPUSCULAR VOLUME 82.6 fL (81.0-99.0); MEAN PLATELET VOLUME 8.8 fL (7.9-10.8); RED BLOOD COUNT 4.31 10^6/uL (4.20-5.40); RED CELL DISTRIBUTION WIDTH 13.4 % (12.0-15.0); WHITE BLOOD COUNT 12.7 x10^3/uL (4.8-10.8)
[2024-02-04 06:10] LABS: RPR Non Reactive (Non Reactive)
== END 2024-02-03 13:55 | disposition home or self-care (01) ==
LOC: LAB 13:54
PROVIDERS: ATTEND Obstetrics & Gynecology
DX: Z34.90 Encounter for supervision of normal pregnancy, unspecified, unspecified trimester (principal)
CPT/HCPCS: 36415; 85027; 86592

== ENCOUNTER 2024-02-18 12:13 | Outpatient (CLI) | payer OTHER ==
--- NOTE | 2024-02-18 14:02 | Ultrasound Report ---
PROCEDURE: OB Follow up INDICATIONS: GESTATIONAL DIABETES OUTSIDE/PRIOR DATING DATA: Last menstrual period (LMP): 07/18/2023. LMP-based estimated date of delivery (KIM): 04/23/2024. First dating scan (date and location): 09/08/2023. Estimated date of delivery (KIM) from first dating scan: 04/28/2024. The below data below was generated using the ultrasound KIM of 04/18/2024 TECHNIQUE: Real-time scanning was performed of the fetus, with image documentation and biometric measurements. Endovaginal scanning: Not performed. COMPARISON: 01/13/2024 FINDINGS: General: A single living intrauterine gestation is present. Presentation: Vertex Placenta: Placental position is posterior, without previa. Amniotic fluid index: 16.9 cm, 67th percentile for gestational age. heart rate: 152 beats per minute. Maternal cervical canal: 0.9 cm long; normal length is 2.5 cm or more. U-shaped funneling of the ce rvical os. biometrics: Biparietal diameter: 8.1 cm, 32 weeks 2 days, 95 percentile Head circumference: 29.6 cm, 32 weeks 5 days, 87th percentile Abdominal circumference: 29.5 cm, 33 weeks 3 days, 100 percentile Femur length: 5.7 cm, 29 weeks 6 days, 30 percentile Estimated gestational age from initial scan: 30 weeks 0 days Composite gestational age from present scan: 32 weeks 1 day Estimated weight and percentile: 1926 g, 97th percentile Measurement variability in biometric dating: +/- 10 days from 12-20 weeks gestation, +/- 2 weeks from 20-30 weeks gestation, +/- 3 weeks at 30 weeks gestation or more. Other: Not applicable. IMPRESSION: Single living intrauterine at 30 weeks 0 days, KIM of 04/28/2024. Estimated weight of 1926 g, 97th percentile. Cervical incompetency, with U-shaped funneling of the cervical os. The maternal cervical canal measur es 0.9 cm. Agree with preliminary interpretation provided to the CHERIE Wheeler by the electrophysiology technologist. T he patient was directed to the labor and delivery for further evaluation. Reviewed by: Jorge Catherine MD on 02/18/2024 2:01 PM PDT Approved by: Jorge Catherine MD on 02/18/2024 2:01 PM PDT Station ID: [id number]
--- NOTE | 2024-02-18 14:03 | Ultrasound Report ---
PROCEDURE: OB Follow up INDICATIONS: GESTATIONAL DIABETES OUTSIDE/PRIOR DATING DATA: Last menstrual period (LMP): 07/18/2023. LMP-based estimated date of delivery (KIM): 04/23/2024. First dating scan (date and location): 09/08/2023. Estimated date of delivery (KIM) from first dating scan: 04/28/2024. The below data below was generated using the ultrasound KIM of 04/18/2024 TECHNIQUE: Real-time scanning was performed of the fetus, with image documentation and biometric measurements. Endovaginal scanning: Performed. COMPARISON: 01/13/2024 FINDINGS: General: A single living intrauterine gestation is present. Presentation: Vertex Placenta: Placental position is posterior, without previa. Amniotic fluid index: 16.9 cm, 67th percentile for gestational age. heart rate: 152 beats per minute. Maternal cervical canal: 0.9 cm long; normal length is 2.5 cm or more. U-shaped funneling of the ce rvical os. biometrics: Biparietal diameter: 8.1 cm, 32 weeks 2 days, 95 percentile Head circumference: 29.6 cm, 32 weeks 5 days, 87th percentile Abdominal circumference: 29.5 cm, 33 weeks 3 days, 100 percentile Femur length: 5.7 cm, 29 weeks 6 days, 30 percentile Estimated gestational age from initial scan: 30 weeks 0 days Composite gestational age from present scan: 32 weeks 1 day Estimated weight and percentile: 1926 g, 97th percentile Measurement variability in biometric dating: +/- 10 days from 12-20 weeks gestation, +/- 2 weeks from 20-30 weeks gestation, +/- 3 weeks at 30 weeks gestation or more. Other: Not applicable. IMPRESSION: Single living intrauterine at 30 weeks 0 days, KIM of 04/28/2024. Estimated weight of 1926 g, 97th percentile. Cervical incompetency, with U-shaped funneling of the cervical os. The maternal cervical canal measur es 0.9 cm. Agree with preliminary interpretation provided to the CHERIE Wheeler by the sonography technologist. T he patient was directed to the labor and delivery for further evaluation. Reviewed by: Jorge Catherine MD on 02/18/2024 2:02 PM PDT Approved by: Jorge Catherine MD on 02/18/2024 2:02 PM PDT Station ID: [id number]
== END 2024-02-18 12:14 | disposition home or self-care (01) ==
LOC: DI 12:13
PROVIDERS: ATTEND Obstetrics & Gynecology
DX: O24.414 Gestational diabetes mellitus in pregnancy, insulin controlled (principal); Z3A.30 30 weeks gestation of pregnancy

== ENCOUNTER 2024-02-18 13:07 | Outpatient (CLI) | payer OTHER ==
[2024-02-18 13:25] VITALS: BP 120/67
--- NOTE | 2024-02-18 14:05 | PROVIDER PROGRESS NOTE ---
- HPI Current : Vital Signs Temperature 98.3 F 02/18/24 13:20 Heart Rate 116 H 02/18/24 13:20 Respiratory Rate 16 02/18/24 13:20 Blood Pressure 120/67 02/18/24 13:20 Temperature 98.3 F 02/18/24 13:20 Heart Rate 116 H 02/18/24 13:20 Respiratory Rate 16 02/18/24 13:20 Blood Pressure 120/67 02/18/24 13:20 O2 Saturation If not protocol: Oxygen Flow, liters/minute - Procedures NST Procedure: NST Procedure Start Date 02/18/24 Start Time 13:18 Stop Time 16:15 Vibroacoustic Stimulation Used No Patient States Movement Yes - Plan Plan: Patient is a 30-lbxt-uww-year-old G1, P0 at 40 weeks 5 days presenting to triage for evaluation after. She has good movement, no leaking, no vaginal bleeding. She denies headache, right upper quadrant pain, changes in vision. She had no contractions Physical Exam Constitutional: alert, no acute distress, well hydrated, well developed, well nourished, appropriate dress. Cardiovascular: Regular rate and rhythm. Respiratory: no respiratory distress. Abdomen: nondistended, nontender, no guarding. Psych: affect and mood appropriate, normal interaction, good eye contact. SSE: No bleeding, cervix does not appear dilated. Swabs collected. SVE: 0/0/-3 FHT: 145 bpm baseline, moderate variability, accelerations present, no decelerations. [place]: Quiescent Assessment and plan Short cerivix -Incidentally found short cervix. Not having any cramping or contractions. Patient was watched in triage for 2 hours and found not to have any cervical dilation. We discussed labor probabilities and precautions. No indication for steroids at this time. If she notices any change, cramping, anything unusual, she should let us know. I have a low threshold to give steroids, but as she has [place] no indications of labor at this time, I will defer steroids until closer to the time of delivery. Should have close follow-up in clinic, discussed possible cervical exams every visit. -Patient discharged with labor precautions
[2024-02-18 14:28] LABS: BILIRUBIN,URINE NEGATIVE (NEGATIVE); GLUCOSE, URINE (UA) 100 mg/dL (NEGATIVE); KETONES,URINE (UA) TRACE mg/dL (NEGATIVE); LEUKOCYTE ESTERASE, URINE NEGATIVE (NEGATIVE); NITRITE,URINE NEGATIVE (NEGATIVE); OCCULT BLOOD,URINE TRACE-LYSE (NEGATIVE); PH,URINE 6.5 PH (5.0-7.5); PROTEIN,URINE NEGATIVE (NEGATIVE); UROBILINOGEN,URINE 0.2 (NORMAL) E.U./dL (NORMAL)
[2024-02-18 14:33] LABS: BACTERIA,URINE Rare /HPF (None Seen); CLARITY,URINE CLEAR (CLEAR); SQUAMOUS EPITHELIAL CELL,UR FEW Squamous (<= Few); WBC,URINE 0-3 /HPF (0-5)
[2024-02-18 16:41] LABS: BACTERIAL VAGINOSIS DNA NEGATIVE (NEGATIVE); CANDIDA GLABRATA DNA NEGATIVE (NEGATIVE); CANDIDA GROUP DNA NEGATIVE (NEGATIVE); CANDIDA KRUSEI DNA NEGATIVE (NEGATIVE); TRICHOMONAS VAGINALIS DNA NEGATIVE (NEGATIVE)
== END 2024-02-18 16:30 | disposition home or self-care (01) ==
LOC: WFO 13:07 → FBP 13:08 → WFO 16:30
PROVIDERS: ATTEND Obstetrics & Gynecology
DX: O26.873 Cervical shortening, third trimester (principal); O24.414 Gestational diabetes mellitus in pregnancy, insulin controlled; Z3A.30 30 weeks gestation of pregnancy
CPT/HCPCS: 59025; 81001; 81514; 87081; 87086; 87797; 99215

== ENCOUNTER 2024-03-02 14:40 | Outpatient (CLI) | payer OTHER ==
[2024-03-02 14:56] VITALS: BP 102/53
--- NOTE | 2024-03-02 16:58 | Ultrasound Report ---
PROCEDURE: OB Biophysical Profile INDICATIONS: non-reactive NST OUTSIDE/PRIOR DATING DATA: Last menstrual period (LMP): 07/18/2023. LMP-based estimated date of delivery (KIM): 04/23/2024. First dating scan (date and location): 09/08/2023. Estimated date of delivery (KIM) from first dating scan: 04/28/2024. The below data below was generated using the ultrasound KIM of 04/28/2024 TECHNIQUE: Real-time scanning was performed of the fetus, with image documentation. Biophysical prof ile was also obtained. Endovaginal scanning: Not performed COMPARISON: 02/18/2024 FINDINGS: General: A single living intrauterine gestation is present. Presentation: Vertex Placenta: Placental position is posterior, without previa. Amniotic fluid index: 12.8 cm, 32 percentile for gestational age. heart rate: 153 beats per minute. Maternal cervical canal cannot be visualized transabdominally. Biophysical profile: Tone: 2 points. Movement: 2 points. Respiration: 2 points. Largest pocket of fluid: 2 points. Umbilical artery Doppler: Not requested IMPRESSION: Single living intrauterine at 31 weeks 6 days, KIM of 04/28/2024. BPP 8 of 8. Reviewed by: Jorge Catherine MD on 03/02/2024 4:56 PM PDT Approved by: Jorge Catherine MD on 03/02/2024 4:56 PM PDT Station ID: [id number]
--- NOTE | 2024-03-03 15:46 | PROVIDER PROGRESS NOTE ---
- HPI Current : Current EDU 04/23/24 Gestation 32 Weeks and 4 Days 2 Para 0 Vital Signs Temperature 98.2 F 03/02/24 14:51 Heart Rate 118 H 03/02/24 14:51 Respiratory Rate 18 03/02/24 14:51 Blood Pressure 102/53 L 03/02/24 14:51 Temperature 98.2 F 03/02/24 14:51 Heart Rate 118 H 03/02/24 14:51 Respiratory Rate 18 03/02/24 14:51 Blood Pressure 102/53 L 03/02/24 14:51 O2 Saturation If not protocol: Oxygen Flow, liters/minute - Procedures OB Procedure Performed: NST Diagnosis/Indication for NST: Gestational Diabetes NST Procedure: NST Procedure Start Date 03/02/24 Start Time 15:45 Stop Time 16:10 Vibroacoustic Stimulation Used No Patient States Movement Yes - Plan Plan: Patient is a 29-year-old -0-1-0 at 32 weeks gestation who presents today from clinic after nonreactive NST for gestational diabetes and sent for extended monitoring and BPP. Physical Exam Constitutional: alert, no acute distress, well hydrated, well developed, well nourished, appropriate dress. . Respiratory: no respiratory distress. Abdomen: nondistended, nontender, no guarding. Psych: affect and mood appropriate, normal interaction, good eye contact. 145 bpm baseline, moderate variability, accelerations present, no decelerations. [place]: Quiescent BPP: 8 Assessment and plan Gestational diabetes -Reactive NST on arrival to the hospital. Nonreactive in the clinic, and BPP was performed today 8 out of 8 and very reassuring. Patient was discharged with kick count instructions. 32 weeks gestation: Follow-up with OB provider for routine care.
== END 2024-03-02 16:15 | disposition home or self-care (01) ==
LOC: WFO 14:40 → FBP 14:42 → WFO 16:15
PROVIDERS: ATTEND Obstetrics & Gynecology
DX: O24.419 Gestational diabetes mellitus in pregnancy, unspecified control (principal); Z3A.32 32 weeks gestation of pregnancy
CPT/HCPCS: 59025

== ENCOUNTER 2024-03-05 09:56 | Outpatient (CLI) | payer OTHER ==
[2024-03-05 10:10] VITALS: BP 111/74
--- NOTE | 2024-03-05 15:23 | PROCEDURE REPORT ---
- HPI Diagnosis/Indication for NST: Gestational Diabetes (on insulin) Current EDU 04/28/24 Gestation 32 Weeks and 2 Days 1 Para 0 Vital Signs Temperature 208.9 F H 03/05/24 10:01 Heart Rate 107 H 03/05/24 10:01 Respiratory Rate 16 03/05/24 10:01 Blood Pressure 111/74 03/05/24 10:01 Temperature 208.9 F H 03/05/24 10:01 Heart Rate 107 H 03/05/24 10:01 Respiratory Rate 16 03/05/24 10:01 Blood Pressure 111/74 03/05/24 10:01 O2 Saturation If not protocol: Oxygen Flow, liters/minute - NST Procedure NST Procedure Start Date 03/05/24 Start Time 10:05 Stop Time 11:05 Vibroacoustic Stimulation Used No Patient States Movement Yes - Results and Plan Findings/Impression: Reactive, Cat 1 Plan: Continue twice weekly NSTs and OB care as scheduled.
== END 2024-03-05 11:10 | disposition home or self-care (01) ==
LOC: WFO 09:56 → FBP 09:58 → WFO 11:10
PROVIDERS: ATTEND Obstetrics & Gynecology
DX: O24.414 Gestational diabetes mellitus in pregnancy, insulin controlled (principal); Z3A.32 32 weeks gestation of pregnancy
CPT/HCPCS: 59025

== ENCOUNTER 2024-04-08 18:21 | Inpatient (IN) ==
[2024-04-08] MEDS ORDERED: lidocaine 1% 20 ML MDV ID PRN (18:32)
[2024-04-08] MEDS ORDERED: METHYLERGONOVINE 0.2 MG/ML VIAL IM PRN (18:32)
[2024-04-08] MEDS ORDERED: TERBUTALINE 1 MG/ML VIAL SUBQ PRN (18:32)
[2024-04-08] MEDS ORDERED: SODIUM CHLORIDE FLUSH 0.9% 10 ML SYRINGE IVP PRN (18:32)
[2024-04-08] MEDS ORDERED: GLUCAGON 1 MG/ML VIAL SUBQ ONE ×2 (18:32)
[2024-04-08] MEDS ORDERED: LABETALOL 20 MG/4 ML SYRINGE IVP PRN ×3 (18:32)
[2024-04-08] MEDS ORDERED: OXYTOCIN 10 UNIT/ML VIAL IM PRN (18:32)
[2024-04-08] MEDS ORDERED: GLUCAGON 1 MG/ML VIAL SUBQ PRN (18:32)
[2024-04-08] MEDS ORDERED: miSOPROStoL 200 MCG TABLET PR PRN (18:32)
[2024-04-08] MEDS ORDERED: DEXTROSE 50% ABBOJECT 25 GM/50 ML SYRINGE IVP PRN (18:32)
[2024-04-08] MEDS ORDERED: miSOPROStoL 200 MCG TABLET BC PRN (18:32)
[2024-04-08] MEDS ORDERED: hydrALAZINE INJ 20 MG/ML VIAL IVP PRN (18:32)
[2024-04-08] MEDS ORDERED: TRANEXAMIC ACID IN NACL 1,000 MG/100 ML BAG IV PRN (18:32)
[2024-04-08] MEDS ORDERED: DEXTROSE 50% ABBOJECT 25 GM/50 ML SYRINGE IVP ONE (18:32)
[2024-04-08] MEDS ORDERED: DEXTROSE 40% GEL 37.5 GM TUBE PO PRN (18:32)
[2024-04-08] MEDS ORDERED: fentaNYL 100 MCG/2 ML VIAL IVP PRN (18:32)
[2024-04-08] MEDS ORDERED: NIFEdipine 10 MG CAPSULE PO PRN (18:32)
[2024-04-08] MEDS ORDERED: DEXTROSE 40% GEL 37.5 GM TUBE PO ONE (18:32)
[2024-04-08] MEDS ORDERED: DEXTROSE 5% 1,000 ML IV SCH ×4 (19:00)
[2024-04-08] MEDS ORDERED: INSULIN REGULAR IN 0.9 % NS 100 UNIT/100 ML BAG IV PRN (19:00)
[2024-04-08 19:14] LABS: BASOPHILS % (AUTO) 0.2 %; EOSINOPHILS % (AUTO) 0.3 %; HCT - HEMATOCRIT 37.8 % (37.0-47.0); HGB - HEMOGLOBIN 12.7 g/dL (12.0-16.0); LYMPHOCYTES # (AUTO) 1.6 10^3/uL (1.5-3.5); LYMPHOCYTES % (AUTO) 16.5 %; MEAN CORPUSCULAR HEMOGLOBIN 27.1 pg (27.0-31.0); MEAN CORPUSCULAR HGB CONC 33.6 g/dL (32.0-36.0); MEAN CORPUSCULAR VOLUME 80.8 fL (81.0-99.0); MEAN PLATELET VOLUME 9.9 fL (7.9-10.8); MONOCYTES # (AUTO) 0.7 10^3/uL (0.0-1.0); MONOCYTES % (AUTO) 7.5 %; NEUTROPHILS # (AUTO) 7.1 10^3/uL (1.5-6.6); NEUTROPHILS % (AUTO) 75.1 %; PLT - PLATELET COUNT 303 10^3/uL (130-450); RED BLOOD COUNT 4.68 10^6/uL (4.20-5.40); RED CELL DISTRIBUTION WIDTH 14.9 % (12.0-15.0); WHITE BLOOD COUNT 9.5 x10^3/uL (4.8-10.8)
[2024-04-08 19:52] LABS: ALBUMIN 3.6 g/dL (3.2-5.5); BILIRUBIN,TOTAL 0.2 mg/dL (0.2-1.0); CALCIUM 9.7 mg/dL (8.5-10.3); CREATININE 0.5 mg/dL (0.6-1.3); POTASSIUM 3.6 mmol/L (3.5-4.5)
[2024-04-08 20:05] LABS: ALBUMIN/GLOBULIN RATIO 1.2 (1.0-2.2); TOTAL PROTEIN 6.7 g/dL (6.4-8.9)
[2024-04-08] MEDS: DEXTROSE 5% 1,000 ML IV SCH (20:36)
[2024-04-08] MEDS: SODIUM CHLORIDE FLUSH 0.9% 10 ML SYRINGE IVP SCH (20:36)
[2024-04-08] MEDS: ZOLPIDEM 5 MG TABLET PO PRN (21:44)
[2024-04-08] MEDS: miSOPROStoL 100 MCG TABLET BC SCH (21:51)
[2024-04-08] MEDS: metFORMIN 500 MG TABLET PO SCH (21:51)
[2024-04-09] MEDS: INSULIN LISPRO 300 UNIT/3 ML PEN SUBQ SCH ×2 (08:01→17:23)
[2024-04-09] MEDS: CALCIUM CARBONATE CHEW 500 MG TABLET PO SCH (08:04)
--- NOTE | 2024-04-09 08:43 | PHARMACY PROGRESS NOTE ---
Best Possible Medication History Admit Date and Time: 04/08/24 [id number] [facility] Statement: As the person ultimately responsible for medication therapy, providers are able to order a medication from an existing home medication list in [facility] via the "Reconcile Routine" prior to Confirmation of that medication by desktop support technician. Such practice is discouraged except when the physician, in their clinical judgment, deems that a medical need exists for a medication without regard to previous use.
--- NOTE | 2024-04-09 11:13 | PROVIDER PROGRESS NOTE ---
Labor Progress Note Uterine Monitoring Uterine Monitoring Mode: positive External toco Contraction Frequency (min/apart): 2-3 Contraction Intensity: positive Mild Uterine Resting Tone: positive Soft Monitoring Monitor Mode: positive External ultrasound Heart Rate Baseline: 145 Heart Rate Variability: positive Moderate (6-25 bmp) Accelerations: positive Present, 15x15 Decelerations: positive None Strip Review: positive Category I Vaginal Exam Dilation (in cm): 1 Effacement (%): 50 Station: -3 Labor Progress Note Labor Progress Note/Additional Text: Continue misoprostol for cervical ripening. category 1. Blood glucose under good control, anticipate insulin infusion if they become more difficult.
[2024-04-09] MEDS: miSOPROStoL 100 MCG TABLET BC SCH (13:50)
--- NOTE | 2024-04-09 16:38 | PROVIDER PROGRESS NOTE ---
Labor Progress Note Uterine Monitoring Uterine Monitoring Mode: positive External toco Contraction Frequency (min/apart): 2-4 Contraction Intensity: positive Mild to moderate Uterine Resting Tone: positive Soft Monitoring Monitor Mode: positive External ultrasound Heart Rate Baseline: 140 Heart Rate Variability: positive Moderate (6-25 bmp) Accelerations: positive Present, 15x15 Decelerations: positive None Strip Review: positive Category I Vaginal Exam Dilation (in cm): 2.5 Effacement (%): 75 Station: -2 Labor Progress Note Labor Progress Note/Additional Text: Feeling contractions and gradually getting stronger. Category 1 tracing. Will continue with misoprostol dosing for 2 additional doses then switch to oxytocin. Will also consider amniotomy at next check. Plan to recheck at the end of second dosing.
[2024-04-09] MEDS ORDERED: INSULIN GLARGINE-YFGN 300 UNIT/3 ML PEN SUBQ SCH (21:00)
[2024-04-09] MEDS: INSULIN GLARGINE-YFGN 300 UNIT/3 ML PEN SUBQ SCH (21:17)
[2024-04-09] MEDS ORDERED: OXYTOCIN/SODIUM CHLORIDE 500 ML IV SCH (21:30)
[2024-04-10] MEDS: LACTATED RINGERS 1,000 ML IV PRN (02:15)
[2024-04-10] MEDS: OXYTOCIN/SODIUM CHLORIDE 500 ML IV SCH (02:20)
[2024-04-10] MEDS: INSULIN LISPRO 300 UNIT/3 ML PEN SUBQ SCH (08:12)
[2024-04-10] MEDS ORDERED: ROPIVACAINE 0.2% 200 MG/100 ML BAG EP ONE (10:12)
[2024-04-10] MEDS ORDERED: LIDOCAINE 2%-EPI 1:100000 20 ML MDV ONE (10:12)
--- NOTE | 2024-04-10 10:18 | PROVIDER PROGRESS NOTE ---
Labor Progress Note Labor Progress Note Labor Progress Note/Additional Text: Patient on 18 milliunits/min, geo regular, but only moderately painful. Discussed amniotomy and patient agrees. head was well engaged, patient was 3/100/-2 station. She had a moderate mount of clear fluid upon amniotomy. Continue with current plan. FHT: 135 beats per baseline, moderate variability, accelerations present, no decelerations. Category 1 [place]: 2 to 4 minutes
--- NOTE | 2024-04-10 10:45 | ANESTHESIA PROCEDURE NOTE ---
Pre-Anesthesia VS, & Labs Diagnosis Surgical Diagnosis:: Active labor Procedure Procedure: vaginal delivery Vitals Vital Signs: Temp Pulse Resp BP 36.4 C L 101 H 14 132/69 H 04/08/24 19:36 04/08/24 19:36 04/08/24 19:36 04/08/24 19:36 Height (in): 5 ft 5 in Weight (kg): 117 kg Body Mass Index: 42.9 BMI Classification: Morbidly Obese NPO NPO: Other (clear liquids during labor) Is Patient ?: Yes Lab Results Current Lab Results: Laboratory Tests 04/10/24 08:06: POC Whole Bld Glucose 76 04/09/24 21:33: POC Whole Bld Glucose 83 04/09/24 19:36: POC Whole Bld Glucose 93 04/09/24 17:08: POC Whole Bld Glucose 103 04/09/24 13:53: POC Whole Bld Glucose 90 04/09/24 09:56: POC Whole Bld Glucose 89 04/09/24 05:49: POC Whole Bld Glucose 78 04/08/24 18:55: WBC 9.5, RBC 4.68, Hgb 12.7, Hct 37.8, MCV 80.8 L, MCH 27.1, MCHC 33.6, RDW 14.9, Plt Count 303, MPV 9.9, Neut # (Auto) 7.1 H, Lymph # (Auto) 1.6, Dickinson # (Auto) 0.7, Eos # (Auto) 0.0, Baso # (Auto) 0.0, Absolute Nucleated RBC 0.00, Nucleated RBC % 0.0, Sodium 135, Potassium 3.6, Chloride 106, Carbon Dioxide 21, Anion Gap 8.0, BUN 6, Creatinine 0.5 L, Estimated GFR (MDRD) 148, G lucose 115 H, Calcium 9.7, Total Bilirubin 0.2, AST 16, ALT 11, Alkaline Phosphatase 104, Total Protein 6.7, Albumin 3.6, Globulin 3.1, Albumin/Globulin Ratio 1.2, Blood Type O POSITIVE, Antibody Screen NEGATIVE Lab results reviewed: Yes 04/08/24 18:55 04/08/24 18:55 Meds/Allgy Home Medications Ambulatory Orders Medication Instructions Recorded Confirmed vit no.95-ferrous 1 ea PO DAILY 09/14/23 04/09/24 fumarate 28 mg-folic acid 800 mcg tablet aspirin 81 mg tablet,delayed 81 mg PO QDAY 03/22/24 04/09/24 release blood-glucose sensor (Dexcom G7 03/22/24 04/09/24 Sensor device) insulin aspart U-100 100 unit/mL 3 unit subcut TID 03/22/24 04/09/24 (3 mL) subcutaneous pen (Novolog FlexPen U-100 Insulin aspart) insulin glargine 100 unit/mL (3 62 unit subcut QPM 03/22/24 04/09/24 mL) subcutaneous pen (Lantus Solostar U-100 Insulin) metformin 500 mg tablet,extended 1,000 mg PO QDAY 03/22/24 04/09/24 release 24 hr (Glucophage XR) aspirin 81 mg chewable tablet 04/09/24 blood sugar diagnostic (FreeStyle 04/09/24 04/09/24 Lite Strips) lancets 28 gauge (FreeStyle 04/09/24 04/09/24 Lancets) metformin 500 mg tablet,extended mg PO 04/09/24 release 24hr (osmotic) pen needle, diabetic 31 gauge x 04/09/24 04/09/24 3/16" (BD Ultra-Fine Mini Pen Needle) pen needle, diabetic 31 gauge x 04/09/24 04/09/24 5/16" (BD Ultra-Fine Short Pen Needle) sumatriptan succinate 100 mg tablet mg PO 04/09/24 Allergies Allergies Allergy/AdvReac Type Severity Reaction Status Date / Time No Known Drug Allergies Allergy Verified 10/16/23 08:14 [facility] Medical History Medical History Gestational diabetes mellitus, class A2 Migraine Bony pelvic pain Sciatica, unspecified side Anxiety Family History Family History (Updated 03/25/24 @ 10:56 by Kacy Barron MA) Father High blood pressure Grandmother No problems noted. Maternal grandmother Diabetes Social History Social History Smoking Status: Never smoker Do you dip or chew tobacco?: No Do you feel safe in your home environment?: Yes Suffered physical, verbal, emotional, or financial abuse?: No History of Abuse: No Are you sexually active?: Yes POLST Patient has POLST: No Anesthesia Exam (Expanded) Exam General: Alert, Oriented x3 and Cooperative Dental: WNL Mouth Openin Fingerbreadth Neck Mobility: Normal Mallampati classification: III Thyromental Distance: 4-6 cm Mental/Cognitive Status: Alert/Oriented X3 and Normal for patient Plan Plan Anesthesia Type: Epidural Consent for Procedure(s) Verified and Reviewed: Yes Code Status: Attempt Resuscitation ASA Classification ASA classification: 2-Mild systemic disease Is this case an emergency?: No
[2024-04-10] MEDS ORDERED: ONDANSETRON 4 MG/2 ML VIAL IVP PRN (10:46)
[2024-04-10] MEDS ORDERED: ePHEDrine 50 MG/ML VIAL IVP ONE (10:46)
[2024-04-10] MEDS ORDERED: NALOXONE 0.4 MG/ML VIAL IVP PRN ×2 (10:46→22:39)
[2024-04-10] MEDS: ePHEDrine 50 MG/ML VIAL IVP PRN (10:50)
[2024-04-10] MEDS ORDERED: INSULIN LISPRO 300 UNIT/3 ML PEN SUBQ SCH (12:00)
[2024-04-10] MEDS: ROPIVACAINE 0.2% 200 MG/100 ML BAG EP PRN (17:14)
--- NOTE | 2024-04-10 19:05 | PROVIDER PROGRESS NOTE ---
Labor Progress Note Labor Progress Note Labor Progress Note/Additional Text: FHT: 145 beats per baseline, minimal variability, no accelerations, early decelerations. Category 2. Has had minimal variability for some time, but accelerations intermittently through the afternoon. Has made quick progress and is now complete and 0 station. Will begin pushing.
--- NOTE | 2024-04-10 21:57 | DELIVERY NOTE ---
Delivery Note Labor Labor: positive Augmented by ARM and Augmented by oxytocin Delivery Method Infant Delivery Method: positive Spontaneous vaginal delivery Cervical Ripening Method Cervical Ripening Method: positive Misoprostil Presentation Presentation: positive MARCI - left occiput anterior Nuchal Cord Nuchal Cord: positive None Amniotic Fluid Description Amniotic Fluid Description: positive Clear Episiotomy Type Episiotomy Type: positive None Laceration Laceration: positive 1st degree Suture Suture Type: positive Vicryl Suture Size: positive 3-0 Delivery Outcome Delivery Outcome: positive Livebirth : positive Placed in direct skin contact with mother and [place] used [place] sex: positive Female Cord Cord: positive 3 vessels Placenta Placenta: positive Intact Estimated Blood Loss Estimated Blood Loss (in cc): 300 Post Delivery Events Post Delivery Events: positive No post delivery events Delivery Comments (Free Text/Narrative) Delivery Comments (Free Text/Narrative): Preoperative Diagnoses 38 weeks gestation Gestational diabetes, A2, managed with insulin Postoperative Diagnoses Same Delivery of live [place] Status post spontaneous vaginal delivery Summary Patient presented for a 38-week induction secondary to gestational diabetes, insulin controlled, but requiring escalating doses of insulin. She received 6 dose of misoprostol for cervical ripening and then had oxytocin and amniotomy for augmentation. Her first day of labor was slow in the latent phase, but rapidly progressed in the active phase. She progressed quickly from 5 to 9 cm and progressed to complete and is ready to push. She had a long, but normal second stage of labor, however had on periods of minimal variability, but intermittent accelerations and was overall reassuring. Her variability turned towards the end of pushing. Delivery Summary: Patient was placed in the dorsal lithotomy position. Upon maternal pushing the head was delivered atraumatically followed by the anterior shoulder, posterior shoulder, then the remainder of the infant's body. A female was delivered with APGARS of 7 at 1 minute and 9 at 5 minutes. The was placed on its mother's chest . After the cord finished pulsating, the umbilical cord was clamped times two and cut. The placenta delivered intact with three vessel cord. Placenta was not sent to pathology. Thirty units of Pitocin were added to the IV fluid and allowed to run freely. Uterine massage was performed until uterus was deemed firm. Upon inspection of the perineum, a first-degree midline laceration was noted and repaired with 2 [id number] stitches. Upon re-inspection the patient was hemostatic. Uterus again massaged and found to be firm. Needle and sponge counts were correct. Patient was stable and allowed to recover in L&D room. Infant was stable and remained in room with mother. weight is pending at this time.
[2024-04-10] MEDS: OXYTOCIN/SODIUM CHLORIDE 500 ML IV PRN (22:10)
[2024-04-10] MEDS ORDERED: ACETAMINOPHEN 500 MG TABLET PO PRN (22:39)
[2024-04-10] MEDS ORDERED: OXYTOCIN/SODIUM CHLORIDE 500 ML IV PRN (22:39)
[2024-04-10] MEDS ORDERED: LABETALOL 20 MG/4 ML SYRINGE IVP PRN ×2 (22:39)
[2024-04-10] MEDS ORDERED: NIFEdipine 10 MG CAPSULE PO PRN (22:39)
[2024-04-10] MEDS ORDERED: hydrALAZINE INJ 20 MG/ML VIAL IVP PRN ×2 (22:39)
[2024-04-10] MEDS ORDERED: SIMETHICONE CHEW 80 MG TABLET PO PRN (22:39)
[2024-04-10] MEDS ORDERED: LABETALOL 5 MG/1 ML 20 ML MDV IVP PRN (22:39)
[2024-04-10] MEDS: ACETAMINOPHEN 500 MG TABLET PO PRN (22:41)
[2024-04-10] MEDS: IBUPROFEN 600 MG TABLET PO PRN (22:53)
[2024-04-11] MEDS: DOCUSATE SODIUM 100 MG CAPSULE PO SCH (09:00)
--- NOTE | 2024-04-11 16:37 | PROVIDER PROGRESS NOTE ---
Subjective Prog Note Date Prog Note Date: 04/11/24 Subjective Subjective: She reports that she is feeling well. Pain is well controlled with current medications. She is ambulating without difficulty. She is tolerating a normal diet. She is voiding without difficulty. Lochia reported as normal. Current Medications Current Medications Current Medications: Current Medications Generic Name Dose Route Start Last Admin Trade Name Freq PRN Reason Stop Dose Admin Acetaminophen 1,000 mg 04/08/24 18:32 04/11/24 11:39 Acetaminophen 500 Mg Tablet PO 1,000 mg Q6HR PRN Administration Pain or Fever > 38C (100.4F) Docusate Sodium 100 mg 04/11/24 09:00 04/11/24 09:00 Docusate Sodium 100 Mg Capsule PO 100 mg BID JESSIKA Administration Hydralazine HCl 5 - 10 mg 04/08/24 18:32 Hydralazine Inj 20 Mg/Ml Vial IVP Q20M PRN SBP> or= 160 OR DBP> or= 110 Protocol Hydralazine HCl 5 - 10 mg 04/10/24 22:39 Hydralazine Inj 20 Mg/Ml Vial IVP Q20M PRN SBP >=160 and/or DBP >=110 Protocol Hydralazine HCl 10 mg 04/10/24 22:39 Hydralazine Inj 20 Mg/Ml Vial IVP .ONCE PRN SBP> or= 160 OR DBP> or= 110 Protocol Ibuprofen 600 mg 04/10/24 22:39 04/11/24 11:39 Ibuprofen 600 Mg Tablet PO 600 mg Q6HR PRN Administration Moderate Pain (Level 4-6) Labetalol HCl 20 mg 04/08/24 18:32 Labetalol 20 Mg/4 Ml Syringe IVP .ONCE PRN SBP> or= 160 OR DBP> or= 110 Protocol Labetalol HCl 20 - 40 mg 04/08/24 18:32 Labetalol 20 Mg/4 Ml Syringe IVP Q10M PRN SBP> or= 160 OR DBP> or= 110 Protocol Labetalol HCl 20 - 80 mg 04/08/24 18:32 Labetalol 20 Mg/4 Ml Syringe IVP Q10M PRN SBP> or= 160 OR DBP> or= 110 Protocol Labetalol HCl 20 mg 04/10/24 22:39 Labetalol 20 Mg/4 Ml Syringe IVP .ONCE PRN SBP >=160 and/or DBP >=110 Protocol Labetalol HCl 20 - 40 mg 04/10/24 22:39 Labetalol 20 Mg/4 Ml Syringe IVP Q10M PRN SBP> or= 160 OR DBP> or= 110 Protocol Labetalol HCl 20 - 80 mg 04/10/24 22:39 Labetalol 5 Mg/1 Ml 20 Ml Mdv IVP Q10M PRN SBP> or= 160 OR DBP> or= 110 Protocol Nifedipine 10 - 20 mg 04/10/24 22:39 Nifedipine 10 Mg Capsule PO Q20M PRN SBP >=160 and/or DBP >=110 Protocol Simethicone 80 mg 04/10/24 22:39 Simethicone Chew 80 Mg Tablet PO TID PRN Gas Sodium Chloride 10 ml 04/08/24 18:32 Sodium Chloride Flush 0.9% 10 Ml Syringe IVP PRN PRN NEEDED PER PROVIDER ORDERS Sodium Chloride 10 ml 04/08/24 19:00 04/11/24 16:00 Sodium Chloride Flush 0.9% 10 Ml Syringe IVP Not Given Q8H JESSIKA Objective Vital Signs/Intake & Output Vital Signs: Vital Signs x48h Temp Pulse Resp BP 04/11/24 12:46 98.1 F 85 17 113/65 Intake & Output: Intake & Output 04/09/24 04/10/24 04/11/24 04/12/24 05:59 05:59 05:59 05:59 Intake Total 2307 / 2307 Output Total 625 / 625 Balance 1682 / 1682 Weight (kg) 259 lb 257 lb 15.053 oz Objective Comments/Other: GEN: NAD Resp: , non-labored respirations ABDOMEN: Soft, nontender. Fundus firm. EXT: 1+ pedal edema. No evidence of DVT. Lab Results 04/08/24 18:55 04/08/24 18:55 Other Labs: Lab Results x24hrs 04/10/24 04/10/24 Range/Units 20:32 17:51 POC Whole Bld Glucose 75 82 (70-100) mg/dL Assessment/Plan Problem List (1) care and examination of lactating mother: (2) Gestational diabetes mellitus, class A2: (3) Obesity complicating , third trimester: Impression: Continue routine care. Anticipate discharge home tomorrow. Brianna Ornelas MD Qualifiers: Obesity type affecting : unspecified obesity Qualified Code(s): O99.213 - Obesity complicating , third trimester
[2024-04-11 23:39] VITALS: O2SAT 98
--- NOTE | 2024-04-12 11:13 | Discharge Summary ---
Discharge Summary Admit Date: 04/08/24 Discharge Date: 04/12/24 Discharging Provider: Brianna Ornelas MD DIAGNOSES Admission Diagnoses: SIUP @ 37w6d A2DM on insulin and metformin Obesity in Discharge Diagnoses with Status of Each Condition: Same, delivered HOSPITAL COURSE Hospital Course: Radha is a 29 yo who presented at 376d for IOL for gestational diabetes on insulin. She underwent cervical ripening with misoprostol followed by pitocin and amniotomy for further augmentation of labor. She had an uncomplicated with an EBL of 300cc. Her course has been uncomplicated. Condition on Discharge: SUBJECTIVE: day 2 s/p Radha feels well. Pain is well controlled with current medications. The baby is doing well. Radha is bottle feeding and pumping. She is ambulating well, tolerating normal diet, urinating without difficulty. Lochia is reported as normal. Radha would like to go home today. OBJECTIVE: Vital signs reviewed. GENERAL: NAD CHEST: non labored respirations ABD: soft, non tender, fundus firm EXT: 2+ pedal edema; No evidence of DVT LAB & IMAGING STUDIES: See below PLAN: Plan for discharge home with follow up in clinic in 1 week. Reviewed home care instructions and medications. Patient counseled regarding signs and symptoms of infection, excessive bleeding, vaginal rest and activity restrictions. Contraceptive plans to be formalized at visit, currently planning for condoms. Encouraged to call clinic for appointment if she needs additional support once at home. ALLERGIES Allergies Allergy/AdvReac Type Severity Reaction Status Date / Time No Known Drug Allergies Allergy Verified 10/16/23 08:14 MEDICATIONS Ambulatory Orders Medication Instructions Recorded Confirmed vit no.95-ferrous 1 ea PO DAILY 09/14/23 04/09/24 fumarate 28 mg-folic acid 800 mcg tablet LABS 04/08/24 18:55 04/08/24 18:55 FOLLOW UP Follow Up: 1 week. TIME SPENT Time Spent in Discharge (Minutes): 20 Discharge Plan Discharge Patient Disposition: Home, Self Care Prescriptions: Continued PNV cmb#95-ferrous fumarate-FA 1 EACH tablet 1 ea PO DAILY Discontinued sumatriptan succinate 100 mg tablet PO Patient Comments: TAKE 1 TABLET BY MOUTH 1 TIME NEEDED FOR MIGRAINE. MAY TAKE SECOND DOSE 2 HOURS AFTER FOR 1 DOSE. DO NOT TAKE MORE THAN 2 TABLETS IN 24 HOURS (DME) FreeStyle Lite Strips Strip MISCELLANEOUS Patient Comments: TEST SUGARS FOUR TIMES DAILY FOR REST OF aspirin 81 mg tablet,chewable Patient Comments: CHEW AND SWALLOW 1 TABLET BY MOUTH DAILY. START TAKING LOW DOSE ASPIRIN DAILY AT 12 WEEKS (DME) pen needle, diabetic [BD Ultra-Fine Short Pen Needle] 31 gauge x 5/16" needle MISCELLANEOUS Patient Comments: USE 1 NEEDLE DAILY metformin 500 mg tablet extended release 24hr PO Patient Comments: Take 2 tablet by mouth once a day Can start with one tablet once a day for one week then increase to two tablets once a day (DME) pen needle, diabetic [BD Ultra-Fine Mini Pen Needle] 31 gauge x 3/16" needle MISCELLANEOUS Patient Comments: USE FOUR TIMES DAILY. (DME) lancets [FreeStyle Lancets] 28 gauge misc MISCELLANEOUS Patient Comments: USE FOUR TIMES DAILY FOR REST OF aspirin 81 mg tablet,delayed release (DR/EC) 81 mg PO QDAY insulin aspart U-100 [Novolog FlexPen U-100 Insulin] 100 unit/mL (3 mL) insulin pen 3 unit subcut TID (DME) Dexcom G7 Sensor Device See Rx Instructions .Route Rx Instructions: As directed metformin [Glucophage XR] 500 mg tablet extended release 24 hr 1,000 mg PO QDAY Rx Instructions: Take 1 tablet by mouth for one week then can increase to 2 tablets once daily insulin glargine [Lantus Solostar U-100 Insulin] 100 unit/mL (3 mL) insulin pen 62 unit subcut QPM Rx Instructions: Inject 62 units SQ in the evening Print Language: Kiswahili Patient Instructions: Vaginal After, Childbirth Breast Care, Depression , Change Expect Parents Follow-up Care: Radames Montague MD [Primary Care Provider] - Other Ambulatory Orders: GLUCOSE TOLERANCE 2HR (Routine) Timeframe: 1 Day Facility: [facility] - Location: Lab (Main) Ordered By: Brianna Ornelas
--- NOTE | 2024-04-12 12:04 | Labor Flowsheet ---
Labor Flowsheet Datetime Report Generated by CPN: 04/12/2024 12:03 Datetime: 04/12/2024 09:34 VITAL SIGNS NBP Sys/Emily/Mean (mmHg): 130 : 66 : 80 Pulse: 83 Datetime: 04/11/2024 22:00 SpO2 (%): 98 Datetime: 04/10/2024 23:45 Respirations: 17 Datetime: 04/10/2024 23:05 Stage of : Datetime: 04/10/2024 23:00 Temperature Route: Oral Datetime: 04/10/2024 22:45 Temperature (C): 37.0 Datetime: 04/10/2024 21:45 Communication Comments: placenta out Datetime: 04/10/2024 21:41 Comments: viable delivery of baby girl Datetime: 04/10/2024 21:40 LaborFlag: Labor Datetime: 04/10/2024 21:30 UTERINE ACTIVITY Monitor Mode: Internal Frequency (min): 2.5-3min Quality: Moderate Duration (sec): 80-90sec Pattern: Normal: <= 5 Contractions in 10 Minutes Resting Tone (Palpate): Relaxed Pitocin Checklist: At Least 1 Acceleration of 15 bpm x 15 Seconds in 30 Minutes or Adequate Variabi lity; No More than 1 Late Deceleration Occurred in Past 30 Minutes; No More than 2 Variable Decelerat ions > 60 Seconds in Duration and decreasing >60 bpm in 30 minutes; No More than 5 Uterine Contractio ns in 10 Minutes for any 20 Minute Interval; Uterus Palpates Soft between Contractions ASSESSMENT A Monitor Mode: Telemetry FHR Baseline Rate : 150 Variability: Moderate 6-25 bpm Accelerations: 15X15 Decelerations: Early Category: Category I PATIENT CARE Oxygen Method: Room Air Datetime: 04/10/2024 21:00 Resting Tone IUP (mmHg): 25 Intensity IUP (mmHg): 210 [place] Units (mmHg): 135 Datetime: 04/10/2024 19:40 MEDICATIONS Pitocin (milliunits): Increased to @ 14 Datetime: 04/10/2024 19:03 Patient Care Comments: Report to KarolynNYLA. Care relinquished at this time. Datetime: 04/10/2024 18:20 VAGINAL EXAM Dilatation (cm): 9.0 Effacement (%): 100 Station: 0 Exam by: Eddi MD Datetime: 04/10/2024 17:46 Monitor Interventions for UA: IUPC Inserted Datetime: 04/10/2024 17:44 Patient Position/Activity: High Fowlers Datetime: 04/10/2024 16:19 Vaginal Bleeding: None Cervix, Consistency: Soft Cervix, Position: Anterior Vaginal Exam Comments: No response to scap stimulation on SVE Datetime: 04/10/2024 15:58 COMMUNICATION Communication: Call/Page Placed to Provider Datetime: 04/10/2024 14:03 Medication Comments: Picotin discontinued due to infiltratin of left IV site. Restarted at 2 when n ew site obtained in right hand. Datetime: 04/10/2024 12:36 I/O Interventions: Mauro Cath Inserted Datetime: 04/10/2024 12:06 Monitor Interventions for FHR: Ultrasound Adjusted Datetime: 04/10/2024 12:00 Contraction Comments: UTD contraction frequency and duration. TOCO adjusted. FHR Baseline Changes: No Baseline Change Datetime: 04/10/2024 10:44 Pain Assessment Comments: Labile BP. Pt repositioned. Datetime: 04/10/2024 10:01 Pain Presence: Intermittent Pain Type: Cramping Pain Location: Abdomen; Back Pain Coping: Breathing Through Contractions Comfort Measures: Breathing/Relaxation Datetime: 04/10/2024 09:33 Membrane Status: Ruptured Membranes Rupture Method: Artificial Amniotic Fluid Color: Clear Amniotic Fluid Amount: Small Amniotic Fluid Odor: Normal Datetime: 04/10/2024 05:30 PAIN Pain Scale: 5 Pain Goal: 5 Pain Relief Measures: Comfort Measures Datetime: 04/10/2024 02:20 MATERNAL ASSESSMENT Level of Consciousness: Alert Breath Sounds, Left: Clear and Equal Breath Sounds, Right: Clear and Equal Plan of Care: Plan of Care Discussed Unit Routine: Medications Labor/Induction: Induction Pain Management: Epidural Teaching Comments: asks questions Datetime: 04/10/2024 00:43 Provider Notified (Name): dr eddi Notification Reason: Labor Status Datetime: 04/09/2024 23:21 Headache: Denies RUQ Epigastric Pain: Denies Datetime: 04/09/2024 19:32 Bedside Blood Glucose: 93 Hygiene: Shower Datetime: 04/09/2024 17:50 Cervical Ripening Agents: Cytotec @ Datetime: 04/09/2024 05:51 Vital Sign Comments: Blood sugar done 78 DTR's/Clonus: DTRs 2+; No Clonus Nausea/Vomiting: Denies Datetime: 04/08/2024 22:00 Analgesics/Sedatives: Ambien (mg) @ 5 Datetime: 04/08/2024 20:19 Membranes Ruptured Date/Time: 04/10/2024 09:33 Datetime: 04/08/2024 20:00 TEACHING Instructional Method: Verbal
== END 2024-04-12 12:02 | disposition home or self-care (01) | DRG 807 ==
LOC: WFO 18:21 → FBP 18:25
PROVIDERS: ADMIT Obstetrics & Gynecology; ATTEND Obstetrics & Gynecology
DX: E66.01 Morbid (severe) obesity due to excess calories; Z3A.37 37 weeks gestation of pregnancy; Z37.0 Single live birth; O76 Abnormality in fetal heart rate and rhythm complicating labor and delivery; R03.0 Elevated blood-pressure reading, without diagnosis of hypertension; O24.424 Gestational diabetes mellitus in childbirth, insulin controlled; O70.0 First degree perineal laceration during delivery; O99.214 Obesity complicating childbirth; O99.891 Other specified diseases and conditions complicating pregnancy